=== PATIENT | male | born 1980 | race Caucasian/White ===

== ENCOUNTER 2021-08-02 11:27 | Emergency (ER) | payer OTHER ==
[~2021-08-02] VITALS: Ht 170.2 cm; Wt 115.0 kg
[2021-08-02] MEDS ORDERED: LORAZEPAM 1MG TABLET PO ONE (11:45)
[2021-08-02 11:47] VITALS: BP 162/80
== END 2021-08-02 12:57 | disposition home or self-care (01) ==
LOC: ER 11:27
DX: F41.9 Anxiety disorder, unspecified (principal); F41.0 Panic disorder [episodic paroxysmal anxiety]; I10 Essential (primary) hypertension
CPT/HCPCS: 71045; 93005; 99283